=== PATIENT | male | born 1990 | race Hispanic/Latino ===

== ENCOUNTER 2019-05-02 22:50 | Emergency (ER) | payer OTHER ==
--- NOTE | 2019-05-03 03:18 | Emergency Department Report ---
- General Chief complaint: Skin/Abscess/Foreign Body Stated complaint: LT ARM PAIN Time Seen by Provider: 05/03/19 02:14 Source: patient Mode of arrival: Ambulatory Limitations: No Limitations - History of Present Illness Initial comments: Pt is a 29 yo male who presents to the ED with c/o a possible insect bite to the left forearm at 9:45 PM last night. He states he was running camera wire outside and felt something bite him. He states initially he felt a stinging/burning sensation. He denies seeing what bit him. He denies any edema, drainage, or fever. He denies any PMHx. He denies any allergies to meds. - Related Data Previous Rx's Medication Instructions Recorded Last Taken Type Neomycin/Bacitracin/Polymyxinb 2 gm TP BID #1 oint...g. 05/03/19 Unknown Rx [Triple Antibiotic Ointment] Allergies Allergy/AdvReac Type Severity Reaction Status Date / Time No Known Allergies Allergy Unverified 05/02/19 23:05 Abscess Boil HPI - HPI Chief Complaint: Skin/Abscess/Foreign Body Stated Complaint: LT ARM PAIN Time Seen by Provider: 05/03/19 02:14 Home Medications: Previous Rx's Medication Instructions Recorded Last Taken Type Neomycin/Bacitracin/Polymyxinb 2 gm TP BID #1 oint...g. 05/03/19 Unknown Rx [Triple Antibiotic Ointment] Allergies/Adverse Reactions: Allergies Allergy/AdvReac Type Severity Reaction Status Date / Time No Known Allergies Allergy Unverified 05/02/19 23:05 ED Review of Systems ROS: Stated complaint: LT ARM PAIN Other details as noted in HPI Comment: All other systems reviewed and negative ED Past Medical Hx - Past Medical History Previous Medical History?: Yes Hx Arthritis: Yes - Surgical History Past Surgical History?: No - Social History Smoking Status: Never Smoker Substance Use Type: Alcohol - Medications Home Medications: Home Medications Medication Instructions Recorded Confirmed Last Taken Type Neomycin/Bacitracin/Polymyxinb 2 gm TP BID #1 oint...g. 05/03/19 Unknown Rx [Triple Antibiotic Ointment] ED Physical Exam - General Limitations: No Limitations General appearance: alert, in no apparent distress - Head Head exam: Present: atraumatic, normocephalic - Eye Eye exam: Present: normal appearance, PERRL - ENT ENT exam: Present: mucous membranes moist - Respiratory Respiratory exam: Present: normal lung sounds bilaterally. Absent: respiratory distress, wheezes, rales, rhonchi, stridor, chest wall tenderness, accessory muscle use, decreased breath sounds, prolonged expiratory - Cardiovascular Cardiovascular Exam: Present: regular rate, normal rhythm, normal heart sounds. Absent: systolic murmur, diastolic murmur, rubs, gallop - Neurological Exam Neurological exam: Present: alert, oriented X3 - Psychiatric Psychiatric exam: Present: normal affect, normal mood - Skin Skin exam: Present: warm, dry, other (small abrasion to the left forearm, no edema, no erythema, no increased warmth, no fluctuance, no drainage, no necrosis, no skin denuding) ED Course Vital Signs 05/02/19 05/03/19 23:06 03:25 Temperature 98.1 F Pulse Rate 91 H 81 Respiratory 20 18 Rate Blood Pressure 182/105 Blood Pressure 168/92 [Right] O2 Sat by Pulse 96 97 Oximetry ED Medical Decision Making - Medical Decision Making Pt is a 29 yo male who presents to the ED with c/o a possible insect bite to the left forearm at 9:45 PM last night. He states he was running camera wire outside and felt something bite him. He states initially he felt a stinging/burning sensation. He denies seeing what bit him. He denies any edema, drainage, or fever. He denies any PMHx. He denies any allergies to meds. on exam: very small abrasion to the left forearm, no edema, no erythema, no increased warmth, no fluctuance, no drainage, no necrosis, no skin denuding. pt given triple abx ointment. discussed to please use ointment as prescribed. follow up with a primary care doctor in the next 2-3 days for reevaluation and to discuss the elevation in your blood pressure while in the emergency department. return to the emergency room for any new or worsening symptoms. discussed with pt to observe for drainage, fever, increased warmth, redness, or any other symptoms and return to the ED immediately. Critical care attestation.: If time is entered above; I have spent that time in minutes in the direct care of this critically ill patient, excluding procedure time. ED Disposition Clinical Impression: Elevated blood pressure reading Insect bite Qualifiers: Encounter type: initial encounter Site of insect bite: forearm Laterality: left Qualified Code(s): S50.862A - Insect bite (nonvenomous) of left forearm, initial encounter Disposition: - TO HOME OR SELFCARE Is pt being admited?: No Does the pt Need Aspirin: No Condition: Stable Instructions: Insect Bite or Sting (ED) Additional Instructions: Please use ointment as prescribed. follow up with a primary care doctor in the next 2-3 days for reevaluation and to discuss the elevation in your blood pressure. return to the emergency room for any new or worsening symptoms. Prescriptions: Neomycin/Bacitracin/Polymyxinb [Triple Antibiotic Ointment] 2 gm TP BID #1 oint...g. Referrals: DAVID OLEARY MD [Primary Care Provider] - 2-3 Days Time of Disposition: 03:16 Print Language: CITIZEN OF [place]
[2019-05-03 03:58] VITALS: BP 168/92
== END 2019-05-03 03:25 | disposition home or self-care (01) ==
LOC: ED 22:50
DX: S50.862A Insect bite (nonvenomous) of left forearm, initial encounter (principal); I10 Essential (primary) hypertension; M19.90 Unspecified osteoarthritis, unspecified site; W57.XXXA Bitten or stung by nonvenomous insect and other nonvenomous arthropods, initial encounter; Y93.89 Activity, other specified; Y92.89 Other specified places as the place of occurrence of the external cause; Y99.8 Other external cause status
CPT/HCPCS: 99282